=== PATIENT | female | born 1955 | race Caucasian/White ===

== ENCOUNTER → 2024-05-14 10:11 | Outpatient (REF) | payer MEDICARE, SELFPAY | LOC: WDC 10:11 | PROVIDERS: ATTENDING PHYSICIAN Obstetrics & Gynecology Gynecology; FAMILY PHYSICIAN Physician Assistant Medical | DX: N64.4 Mastodynia (principal) | CPT/HCPCS: 76642; 77061; 77065 ==

== ENCOUNTER → 2024-08-11 08:37 | Outpatient (REF) | payer MEDICARE, SELFPAY | LOC: WDC 08:37 | PROVIDERS: ATTENDING PHYSICIAN Obstetrics & Gynecology Gynecology; FAMILY PHYSICIAN Physician Assistant Medical | DX: R92.2 Inconclusive mammogram (principal); Z80.3 Family history of malignant neoplasm of breast | CPT/HCPCS: 76641 ==

== ENCOUNTER 2024-12-26 07:45 | Emergency (ER) | payer MEDICARE, SELFPAY ==
[2024-12-26 07:56] VITALS: BP 136/91
[2024-12-26 08:18] LABS: % Basophils 0.5 % (0-2); % Eosinophils 0.3 % (0-6); % Immature Granulocytes 0.3 % (0-0.5); % Monocytes 9.7 % (1.7-9.3); % Neutrophils 46.2 % (42.2-75.2); Absolute Lymphocytes 1.6 10^3/uL (1.2-3.4); Absolute Monocytes 0.4 10^3/uL (0.1-0.6); Absolute Neutrophils 1.8 10^3/uL (1.4-6.5); Hematocrit 41.8 % (37.0-47.0); Hemoglobin 13.7 g/dL (12.0-16.0); Mean Corp Hgb Conc. 32.8 g/dL (33.0-37.0); Mean Corpuscular Hgb 29.4 pg (27.0-31.0); Mean Corpuscular Volume 89.7 fL (81.0-99.0); Nucleated Red Blood Cells % 0 %; Platelet Count 217 10^3/uL (130-400); Red Blood Cell Count 4.66 10^6/uL (4.20-5.40); Red Cell Dist. Width 13.8 % (11.5-14.5); White Blood Cell Count 3.8 10^3/uL (4.8-10.8)
[2024-12-26 08:29] LABS: ALT (SGPT) 23 U/L (0-35); AST (SGOT) 26 U/L (14-36); Albumin 4.4 g/dl (3.5-5.0); Alkaline Phosphatase 88 U/L (38-126); Blood Urea Nitrogen 13 mg/dl (7-17); Calcium 9.6 mg/dl (8.4-10.2); Carbon Dioxide 27 mmol/L (22-30); Chloride 106 mmol/L (98-107); Glucose 116 mg/dl (70-99); Lipase 77 U/L (23-300); Potassium 4.5 mmol/L (3.5-5.1); Sodium 140 mmol/L (135-145); Total Bilirubin 0.5 mg/dl (0.2-1.3); Total Protein 7.4 g/dl (6.3-8.2); eGFR > 60.00
[2024-12-26 08:31] LABS: Urine Albumin Negative (Neg - Trace); Urine Bilirubin Negative (Negative); Urine Character Clear (Clear); Urine Color Yellow; Urine Glucose Negative (Negative); Urine Ketone Negative (Negative); Urine Leukocyte 1+ (Negative); Urine Nitrite Negative (Negative); Urine Occult Blood Negative (Negative); Urine Urobilinogen Negative (Neg - 1+)
--- NOTE | 2024-12-26 08:54 | ED.GENMED ---
History of Present Illness
General
Chief Complaint: Abdominal Symptoms
Source: patient
Exam Limitations: none
Time Seen by Provider: 12/26/24 08:53
Nursing documentation reviewed up to this point in time: agreed with
History of Present Illness
History of Present Illness:
Patient is a 69-year-old female who has had pain in the right rib area for about a month. She has been painting wol[place] of her house though denies injury. She thought this was possible muscular but then she started with nausea and has had diarrhea
twice this week which prompted her to come to the ER. She does have a history gallstones want to make sure this is not gallbladder disease. She denies any associated shortness of breath with this. She denies any rash, recent illness. Denies any
cough fever chills.
She does sometimes feel reflux in her chest.
Past History
Past History
ED Past Medical History: Hypercholesterolemia
ED Past Surgical History: Gynecological (Hysterectomy) and Other (Cataract removal)
Social History
Tobacco: Non-smoker
Alcohol: Occasional (Rare)
Personal:
Living: with family
Employment: Employed
Family History
Family History: CAD (Father); Negative Early CAD or Sudden
Review of Systems
Review of Systems
Allergies reviewed?: Yes
All Other Systems: ROS reviewed and negative except as documented in HPI and ROS
Constitutional: Reports no symptoms; Denies fever, fatigue or chills
EENT: Reports no symptoms
Respiratory: Reports other (right rib /chest discomfort ); Denies trouble breathing
Cardiac: Reports no symptoms
ABD/GI: Reports nausea and diarrhea
: Reports no symptoms
Musculoskeletal: Reports no symptoms
Neurological: Reports no symptoms
Psychiatric: Reports no symptoms
Phy Exam
General Physical Exam
General Presentation: no apparent distress
General age: appears stated age
General Skin: warm and dry
General Habitus: normal
General Mental: alert
Cardiovascular Exam
Cardiovascular Exam: regular rate/rhythm, no murmur and normal peripheral pulses
Pulmonary Exam
Pulmonary Exam: lungs clear and other (tender to palpation right rib region, no rash )
Neurological Exam
Neurological Exam: alert and oriented x3
Musculoskeletal Exam
Musculoskeletal Exam: full ROM
Skin Exam
Skin Exam: warm/dry
Psychiatric Exam
Psychiatric Exam: normal mood/affect
Course
Orders/Labs/Results
Orders:
Orders
12/26/24 08:05
Complete Blood Count/With Diff Urgent
Comprehensive Metabolic Panel Urgent
Lipase Urgent
Urinalysis Reflex To Culture Urgent
Date Specimen was Collected: 12/26/24
Time Specimen was Collected: 07:59
Urine Microscopic Reflex Cult Urgent
Urine Culture Urgent
EDWARD Source: U
Specimen Description:
Date Specimen was Collected: 12/26/24
Time Specimen was Collected: 07:59
12/26/24 09:05
Ribs, Right 3 View W/PA Chest [CR Ribs-right 3 Vw W/pa Chest*] Urgent
Comment:
Reason For Exam: pain
12/26/24 09:06
Electrocardiogram (*1) Stat
Reason for Study: Chest Pain
EKG- Treatment ONCE
12/26/24 09:07
US Abdomen Complete/Upper Urgent
Comment:
Reason For Exam: ruq pain
Abnormal Lab Results
12/26/24
08:05
WBC 3.8 L 10^3/uL
(4.8-10.8)
MCHC 32.8 L g/dL
(33.0-37.0)
Monocytes % 9.7 H %
(1.7-9.3)
Glucose 116 H mg/dl
(70-99)
Leukocyte Esterase Rfl 1+ A
(Negative)
12/26/24 08:05
12/26/24 08:05
Vital Signs
Initial and Last Documented VS:
Initial Vital Signs
Temp Pulse Resp BP Pulse Ox
98.2 F 72 16 136/91 98
12/26/24 07:56 12/26/24 07:56 12/26/24 07:56 12/26/24 07:56 12/26/24 07:56
Last Documented Vital Signs
Temp Pulse Resp BP Pulse Ox
98.2 F 61 18 132/81 98
12/26/24 07:56 12/26/24 10:33 12/26/24 10:33 12/26/24 10:33 12/26/24 10:33
MDM/Problems Addressed
Differential Diagnosis Includes:
not limited to: Muscular pain less likely gallbladder issues
MDM/Problems Addressed:
Patient has been doing a lot of housework and painting recently just got done painting wolfe in her house and now is planning on stripping wallpaper. She has had pain in the right rib area. This is very tender to palpation and presents muscular.
She has no associated shortness of breath or rash no upper abdominal tenderness. She presented because she had little nausea and diarrhea wanted to make sure that it was not her gallbladder issue. This is likely a viral syndrome incidentally with
muscular pain. She is in no acute distress nonhypoxic abdomen soft nontender she is tender over the rib area only. She is nonhypoxic nontachycardic afebrile no acute distress stable for discharge home. Discussed with patient to rest alternate
Tylenol Motrin follow
*Radiology
Radiology exam reviewed: radiology read reviewed
*Pulse Oximetry
Patient hypoxic: no
*EKG
Interpreted by ED Provider?: Yes
Interpretation: normal
Heart Rate: 65
Rate: normal
Rhythm: sinus
*Critical Care Note
Total Time (30-74mins, 75-104mins- exclusive of procedures): Not Applicable
ED Attending Note
-
Portions of this chart may have been created with voice recognition software.� Occasional wrong word or��sound alike� substitutions may have occurred due to the inherent limitations of voice recognition software.
Discharge Plan
Departure
Patient Disposition: Home (Routine Discharge)
Date of Disposition: 12/26/24
Time of Disposition: 11:16
Patient with high blood pressure during this ER visit?: Yes
Condition: Fair
Covid-19: Not Applicable
Discharge Problem:
muscle and bone pain
Instructions: Muscle, joint, and bone pain - Discharge instructions, BLOOD PRESSURE
Prescriptions:
No Action
ascorbic acid (vitamin C) [Vitamin C] 1,000 MG tablet
1,000 mg PO DAILY
rebekah Delgado B.animalis 1 EACH capsule
1 ea PO BID
Patient Comments:
unsure of units
Vitamin B-12
1 tab PO DAILY
Patient Comments:
unsure of mg
Vitamin D3
1 tab PO DAILY
Patient Comments:
unsure of mg
calcium carbonate 600 MG tablet
600 mg PO DAILY
magnesium 250 MG tablet
250 mg PO DAILY
lysine HCl 500 MG tablet
500 mg PO DAILY
omeprazole 20 MG capsule,delayed release(DR/EC)
20 mg PO DAILY Qty: 20 0RF
Referrals:
UNKNOWN - PT NOT,INTERVIEWE [Family Provider] -
Activity Restrictions/Additional Instructions:
As discussed this is likely muscular pain. Please rest over the next several days!!
you may continue to alternate between ibuprofen and Tylenol. You may alternate between ice and heat. Follow-up closely with your family doctor the next of days return if any worsening of symptoms
Interventions
Interventions:
*Risk Screen - Suicide Last Done: 12/26/24 07:56
*General Assessment Last Done: 12/26/24 10:32
*Neglect/Abuse Screening Last Done: 12/26/24 07:56
*Nursing Disposition Last Done: 12/26/24 11:44
RJ-Mouzct-Gaasbjtqbn Assessment Last Done: 12/26/24 10:35
Discharge Date and Time
Discharge Date/Time: 12/26/24 11:45
Print Language: UPPER SORBIAN
[2024-12-26 10:11] LABS: Urine Mucus Few
[2024-12-26 10:13] LABS: Urine Amorphous Seen; Urine Hyaline Cast 0-2 /LPF (0-2)
[2024-12-26 10:14] LABS: Urine Red Blood Cell 0-2 /HPF (0-2)
[2024-12-26 10:32] VITALS: BMI 30.8
[2024-12-26 10:33] VITALS: BP 132/81
== END 2024-12-26 11:45 | disposition home or self-care (01) ==
LOC: EMR 07:45
PROVIDERS: EMERGENCY PHYSICIAN Student in an Organized Health Care Education/Training Program
DX: M89.8X9 Other specified disorders of bone, unspecified site (principal); R07.81 Pleurodynia; K21.9 Gastro-esophageal reflux disease without esophagitis; E78.00 Pure hypercholesterolemia, unspecified; Z82.49 Family history of ischemic heart disease and other diseases of the circulatory system; Z90.710 Acquired absence of both cervix and uterus
CPT/HCPCS: 99284; 71101; 76700; 80053; 81003; 81015; 83690; 85025; 87086; 93005

== ENCOUNTER 2025-06-15 09:00 | Emergency (ER) | payer MEDICARE, SELFPAY ==
[2025-06-15 09:02] VITALS: BP 149/93
--- NOTE | 2025-06-15 09:37 | ED.GENMED ---
History of Present Illness
General
Chief Complaint: Abdominal Pain
Time Seen by Provider: 06/15/25 09:24
Nursing documentation reviewed up to this point in time: agreed with
History of Present Illness
History of Present Illness:
70-year-old female presents to the ER for evaluation of mid back pain which started last night and prevented her from getting a good night sleep. Patient reports that she has been having ongoing issues with right sided chest pain intermittently
over the last several months. 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 Patient has reported worsening dyspepsia and was belching frequently throughout the night. Her
appointment was scheduled for August. She was able to follow-up with her family physician and was given a prescription for CAT scan to be performed this . Given progression of symptoms and worsening pain she comes to the ER today for
evaluation. She denies any shortness of breath, cough or cold symptoms. She denies any nausea vomiting or change in bowel habits. She denies any blood in her stool or change in caliber of her stool. She cannot correlate this discomfort with any
change in diet or particular foods. She states that she had a tomato sandwich for dinner last night. She did not try any ymbz-pon-tmtvgxx remedies for her symptoms. She states that the pain is a 4 out of 10 at current. She denies any recent
injury or trauma. She was seen in the emergency department in December for evaluation of her right sided chest pain given her history of gallstones. She had an ultrasound performed at that time which I was able to review in the electronic medical
record showing multiple gallstones, no Luz Elena cystitis. Patient has prior surgical history of hysterectomy/BTL only. No fevers or chills.
Past History
Past History
ED Past Medical History: Hypercholesterolemia
ED Past Surgical History: Gynecological (Hysterectomy) and Other (Cataract removal)
Social History
Tobacco: Non-smoker
Alcohol: Occasional (Rare)
Personal:
Living: with family
Employment: Employed
Family History
Family History: CAD (Father); Negative Early CAD or Sudden
Review of Systems
Review of Systems
Allergies reviewed?: Yes
Phy Exam
Physical Exam
Physical Exam:
Patient is awake, alert, appears in no acute distress, wearing glasses, head is normocephalic atraumatic, sclera anicteric, conjunctiva pink, mucous membranes moist, heart regular rate and rhythm without murmurs or ectopy, lungs are clear to
auscultation, patient gestures to mid thoracic spine as area of discomfort, pain is not reproducible on palpation, no overlying skin change, no step-offs on palpation of thoracic or lumbar spine, abdomen is soft with moderate pain on palpation
epigastrium and right upper quadrant only, extremities without edema, GCS is 15
Course
Orders/Labs/Results
Orders:
Orders
06/15/25 09:06
ECG [Electrocardiogram (*1)] Urgent
Reason for Study: Abdominal Pain
EKG- Treatment ONCE
06/15/25 09:38
CT Chest/abd/pelvis Angio W/wo Urgent
Comment:
Reason For Exam: abdominal pain rad to mid back
06/15/25 09:51
Complete Blood Count/With Diff Urgent
Comprehensive Metabolic Panel Urgent
Lipase Urgent
Prothrombin Time Urgent
Troponin I Urgent
06/15/25 12:04
Urinalysis Reflex To Culture Urgent
Date Specimen was Collected: 06/15/25
Time Specimen was Collected: 12:01
Urine Microscopic Reflex Cult Urgent
Abnormal Lab Results
06/15/25 06/15/25
09:51 12:04
MCHC 32.3 L g/dL
(33.0-37.0)
MPV 10.6 H fL
(7.4-10.4)
Glucose 105 H mg/dl
(70-99)
Urine Albumin (Reflex) 1+ A
(Neg - Trace)
06/15/25 09:51
06/15/25 09:51
Vital Signs
Initial and Last Documented VS:
Initial Vital Signs
Temp Pulse Resp BP Pulse Ox
97 F 82 16 149/93 99
06/15/25 09:02 06/15/25 09:02 06/15/25 09:02 06/15/25 09:02 06/15/25 09:02
Last Documented Vital Signs
Temp Pulse Resp BP Pulse Ox
97.7 F 60 16 121/75 99
06/15/25 12:00 06/15/25 12:00 06/15/25 12:00 06/15/25 12:00 06/15/25 12:00
MDM/Problems Addressed
Differential Diagnosis Includes:
Differential diagnosis to consider but not limited to choledocholithiasis, acute cholecystitis, aortic dissection, GERD, peptic ulcer disease, pancreatitis along with other etiologies
Chronic conditions affecting care:
GERD, gallstones, irritable bowel syndrome along with other etiologies considered
*Radiology
Radiology exam reviewed: radiology read reviewed
*Pulse Oximetry
SaO2: 99
Oxygen Mode of Delivery: Room air
Patient hypoxic: no
*EKG
Interpreted by ED Provider?: Yes (I independently viewed and interpreted twelve-lead EKG showing normal sinus rhythm, rate 71, normal axis, normal intervals, this is a normal tracing, similar to prior from 12/26/2024)
*Nitrogen Operator Interpretation
Rate: normal (I independently viewed and interpreted rhythm strip showing normal sinus rhythm, no ectopy)
*Critical Care Note
Total Time (30-74mins, 75-104mins- exclusive of procedures): Not Applicable
Update Note
Update Note:
Patient is declining any medications for treatment of symptoms at the current time, preferring to await CT scan for further evaluation. CT angio ordered to rule out vascular injury in addition to possible biliary/GI etiology. Patient and
present bedside agree with plan at current
1135: I reviewed with patient and present at bedside very reassuring workup so far. CT scan results including presence of cholelithiasis and possible bladder wall asymmetry. Patient will provide urine sample to rule out cystitis although
this does not correlate with the symptoms she is describing of upper back discomfort. I discussed with her possible biliary dyskinesia as etiology of pain. We also discussed possible reflux-she is no longer on Prilosec. I discussed with her use
of trial of Prilosec to see if this would help alleviate her symptoms. I discussed with her benefit of follow-up with surgery for further evaluation of her gallbladder. Patient and present bedside feel comfortable with plan at current.
Urinalysis is not consistent with infection. Patient is provided with urology follow-up information for outpatient follow-up. She expressed understanding of discharge plan and strict return precautions. Both she and her felt comfortable
and had no questions prior to leaving the department in good condition.
ED Attending Note
-
Portions of this chart may have been created with voice recognition software.� Occasional wrong word or��sound alike� substitutions may have occurred due to the inherent limitations of voice recognition software.
Discharge Plan
Departure
Patient Disposition: Home (Routine Discharge)
Date of Disposition: 06/15/25
Time of Disposition: 12:44
Patient with high blood pressure during this ER visit?: Yes
Discharge Problem:
Back pain, Chronic gastroesophageal reflux disease, Cholelithiasis, Bladder wall thickening
Instructions: Acid Reflux and GERD in Adults (DC), Gallstones - ED (DC)
Prescriptions:
No Action
ascorbic acid (vitamin C) [Vitamin C] 1,000 MG tablet
1,000 mg PO DAILY
L.acidoph,paracasei,B.animalis 1 EACH capsule
1 ea PO BID
Patient Comments:
unsure of units
Vitamin B-12
1 tab PO DAILY
Patient Comments:
unsure of mg
Vitamin D3
1 tab PO DAILY
Patient Comments:
unsure of mg
calcium carbonate 600 MG tablet
600 mg PO DAILY
magnesium 250 MG tablet
250 mg PO DAILY
lysine HCl 500 MG tablet
500 mg PO DAILY
omeprazole 20 MG capsule,delayed release(DR/EC)
20 mg PO DAILY Qty: 20 0RF
Referrals:
Malka Matthew PA-C [Family Provider, Family Practice]
Chiki Vargas MD [Active, Urology] - Next open appointment
Discharge Problem: Bladder wall thickening
Jarrell Mcnally MD [Active, Surgical] - Next open appointment
Discharge Problem: Cholelithiasis
Activity Restrictions/Additional Instructions:
Please take antacid medication as previously prescribed by your primary care physician. Please follow a low acid/low-fat diet until you are seen in follow-up. Follow-up with your return to vendor as scheduled. You will not need to have
additional CAT scan performed this week given studies performed in the emergency department. Return to the ER for any concerns
Interventions
Interventions:
*Risk Screen - Suicide Last Done: 06/15/25 09:02
*General Assessment Last Done: 06/15/25 09:02
*Neglect/Abuse Screening Last Done: 06/15/25 09:40
*ED- Fall Risk Assessment Last Done: 06/15/25 09:40
*ED COVID-19 Vaccine History Last Done: 06/15/25 09:40
*Nursing Disposition Last Done: 06/15/25 13:06
BG-Poncyk-Lyleumazdr Assessment Last Done: 06/15/25 09:56
Discharge Date and Time
Discharge Date/Time: 06/15/25 13:06
Print Language: MOHAWK
[2025-06-15 09:52] VITALS: BMI 27.9
[2025-06-15 09:53] VITALS: BP 128/80
[2025-06-15 10:15] LABS: INR 1.02; PT 13.7 Sec (11.4-14.6)
[2025-06-15 10:25] LABS: ALT (SGPT) 20 U/L (0-35); AST (SGOT) 25 U/L (14-36); Albumin 4.6 g/dl (3.5-5.0); Alkaline Phosphatase 94 U/L (38-126); Blood Urea Nitrogen 15 mg/dl (7-17); Calcium 9.9 mg/dl (8.4-10.2); Carbon Dioxide 28 mmol/L (22-30); Chloride 104 mmol/L (98-107); Estimated Creatinine Clearance 66 ml/min; Glucose 105 mg/dl (70-99); Lipase 58 U/L (23-300); Potassium 4.6 mmol/L (3.5-5.1); Sodium 138 mmol/L (135-145); Total Protein 7.8 g/dl (6.3-8.2); eGFR > 60.00
[2025-06-15 10:37] LABS: Troponin I < 0.012 ng/ml
[2025-06-15 11:13] LABS: Hematocrit 43.6 % (37.0-47.0); Hemoglobin 14.1 g/dL (12.0-16.0); Mean Corp Hgb Conc. 32.3 g/dL (33.0-37.0); Mean Corpuscular Volume 90.1 fL (81.0-99.0); Nucleated Red Blood Cells % 0 %; Platelet Count 225 10^3/uL (130-400); Red Cell Dist. Width 13.6 % (11.5-14.5)
[2025-06-15 12:00] VITALS: BP 121/75
[2025-06-15 12:37] LABS: Urine Character Clear (Clear)
[2025-06-15 13:14] LABS: Urine Red Blood Cell 0-2 /HPF (0-2); Urine Squamous Cell 16-20 /LPF (Few); Urine White Cell 0-2 /HPF (0-5)
== END 2025-06-15 13:06 | disposition home or self-care (01) ==
LOC: EMR 09:00
PROVIDERS: EMERGENCY PHYSICIAN Emergency Medicine; FAMILY PHYSICIAN Physician Assistant Medical
DX: M54.6 Pain in thoracic spine (principal); K21.9 Gastro-esophageal reflux disease without esophagitis; K80.20 Calculus of gallbladder without cholecystitis without obstruction; N32.89 Other specified disorders of bladder; E78.00 Pure hypercholesterolemia, unspecified
CPT/HCPCS: 99284; 71275; 74174; 80053; 81003; 81015; 83690; 84484; 85025; 85610; 93005; Q9967

== ENCOUNTER 2025-07-27 16:09 | Emergency (ER) | payer MEDICARE, SELFPAY ==
[2025-07-27 16:14] VITALS: BP 123/81
[2025-07-27 16:39] LABS: Hematocrit 44.0 % (37.0-47.0); Hemoglobin 14.0 g/dL (12.0-16.0); Mean Corp Hgb Conc. 31.8 g/dL (33.0-37.0); Mean Corpuscular Volume 93.8 fL (81.0-99.0); Nucleated Red Blood Cells % 0 %; Platelet Count 247 10^3/uL (130-400); Red Cell Dist. Width 13.9 % (11.5-14.5)
[2025-07-27 17:00] LABS: ALT (SGPT) 21 U/L (0-35); AST (SGOT) 24 U/L (14-36); Albumin 4.6 g/dl (3.5-5.0); Alkaline Phosphatase 85 U/L (38-126); Blood Urea Nitrogen 16 mg/dl (7-17); Calcium 9.7 mg/dl (8.4-10.2); Chloride 102 mmol/L (98-107); Glucose 133 mg/dl (70-99); Potassium 4.5 mmol/L (3.5-5.1); Sodium 137 mmol/L (135-145); Total Protein 7.8 g/dl (6.3-8.2); eGFR > 60.00
[2025-07-27 17:09] LABS: Carbon Dioxide 26 mmol/L (22-30)
[2025-07-27 17:13] VITALS: BP 140/74
[2025-07-27 17:50] VITALS: BMI 26.3
[2025-07-27] MEDS: TORADOL 15 MG IV (17:54)
--- NOTE | 2025-07-27 18:59 | ED.GENMED ---
History of Present Illness
General
Chief Complaint: Headache
Source: patient
Exam Limitations: none
Time Seen by Provider: 07/27/25 17:01
Nursing documentation reviewed up to this point in time: agreed with
History of Present Illness
History of Present Illness:
Patient to ED with complaint of headache. Headache started on Sunday. Denies any fever chills recent illness. She was evaluated by her primary care provider and sent to the emergency dept for further evaluation. Patient states that her provider
felt that her left side was weaker than her right side. Patient denies any difficulty with ambulation. She denies feeling weaker on the left versus the right. She denies any changes in her vision. She states she has a history of migraine
headaches but typically has an aura before her migraines start. There was no aura associated with this headache. This headache is located posteriorly where she reports pain from migraine headaches are typically frontal for her. She reports taking
Tylenol without any improvement. Spouse is bedside. He denies noticing any changes in her neurological status.
Past History
Past History
ED Past Medical History: Hypercholesterolemia
ED Past Surgical History: Gynecological (Hysterectomy) and Other (Cataract removal)
Social History
Tobacco: Non-smoker
Alcohol: Occasional (Rare)
Personal:
Living: with family
Employment: Employed
Family History
Family History: CAD (Father); Negative Early CAD or Sudden
Review of Systems
Review of Systems
Allergies reviewed?: Yes
All Other Systems: ROS reviewed and negative except as documented in HPI and ROS
Constitutional: Reports no symptoms
EENT: Reports no symptoms
Respiratory: Reports no symptoms
Cardiac: Reports no symptoms
ABD/GI: Reports no symptoms
: Reports no symptoms
Musculoskeletal: Reports no symptoms
Skin: Reports no symptoms
Neurological: Reports headache
Psychiatric: Reports no symptoms
Phy Exam
General Physical Exam
General Presentation: mild distress
General age: appears stated age
General Skin: warm and dry
General Habitus: normal
General Mental: alert
General Hydration: appears well hydrated
ENT Exam
ENT Exam: EOMI, TM's normal, neck supple and normocephalic
Eye Exam
Eye Exam: PERRL, EOMI, conjunctiva normal and globe normal
Cardiovascular Exam
Cardiovascular Exam: regular rate/rhythm and no edema
Pulmonary Exam
Pulmonary Exam: lungs clear and no respiratory distress
Neurological Exam
Neurological Exam: alert, oriented x3, CN II-XII intact, no motor deficits, no sensory deficits and speech normal
[place] Coma Scale
Eye Opening: Spontaneous
Verbal Response: Oriented
Motor Response: Obeys Commands
GCS Total Score: 15
Mental
Mental Status: oriented to person, oriented to place, oriented to time and usual mental status
Cranial
Cranial Nerves: normal
EOM (CN3/4/6): intact
Motor
Seizure Activity: none
Other Movement Disorders: none
Right upper extremity: 4
Right lower extremity: 4
Left upper extremity: 4
Left lower extremity: 4
Bilateral upper extremities: 4
Bilateral lower extremities: 4
Sensory
Sensory Exam: intact
Cerebellar
Cerebellar Function: normal finger to nose and normal Romberg test
Musculoskeletal Exam
Musculoskeletal Exam: full ROM and neuro vasc intact
Skin Exam
Skin Exam: normal color, warm/dry and no rash
Psychiatric Exam
Psychiatric Exam: normal mood/affect
Course
Orders/Labs/Results
Orders:
Orders
07/27/25
Electrocardiogram (*1) Stat
Comment: DONE
07/27/25 16:[address] [CT Head W/o Iv Contrast] Urgent
Comment:
Reason For Exam: headache
07/27/25 16:30
CMP [Comprehensive Metabolic Panel] Urgent
Complete Blood Count/With Diff Urgent
Lyme Progressive Urgent
Comment: ADD ON
07/27/25 17:26
Ketorolac [Toradol] 15 mg IV NOW STA
07/27/25 17:41
Add On- LAB Urgent
Comments:: lyme progressive
Tests Added?: lyme progressive
Abnormal Lab Results
07/27/25
16:30
MCHC 31.8 L g/dL
(33.0-37.0)
MPV 10.5 H fL
(7.4-10.4)
Glucose 133 H mg/dl
(70-99)
07/27/25 16:30
07/27/25 16:30
Vital Signs
Initial and Last Documented VS:
Initial Vital Signs
Temp Pulse Resp BP Pulse Ox
97.8 F 81 18 123/81 97
07/27/25 16:14 07/27/25 16:14 07/27/25 16:14 07/27/25 16:14 07/27/25 16:14
Last Documented Vital Signs
Temp Pulse Resp BP Pulse Ox
97.8 F 73 15 140/74 98
07/27/25 16:14 07/27/25 17:45 07/27/25 17:45 07/27/25 17:13 07/27/25 17:51
*Radiology
Radiology exam reviewed: radiology read reviewed
*Pulse Oximetry
SaO2: 98
Oxygen Mode of Delivery: Room air
Patient hypoxic: no
*Critical Care Note
Total Time (30-74mins, 75-104mins- exclusive of procedures): Not Applicable
Update Note
Update Note:
Patient to the emergency department with report of posterior headache for the past 3 days. Pain has not been responding to Tylenol. She denies fever or chills. Denies any vision changes. Labs reviewed, no concerning findings. CT of head
completed. No acute findings. Her neuroexam was unremarkable. No weakness noted. No facial droop. She is concerned for Lyme disease. She states now that she has had Lyme disease in the past and is concerned that the headache may be due to
reinfection. She does report removing a deer tick from her body this summer. Lyme progressive has been ordered. Results are pending. Discussed with her that the results will not be available tonight. She will be notified by the hospital for any
positive results. She was given a dose of Toradol while in the emergency department and pain has resolved. She will be discharged home with her and will follow-up with her family doctor in 1 to 2 days. She was given instructions on signs
and symptoms to return to the emergency department and she is agreeable to plan.
ED Attending Note
-
Portions of this chart may have been created with voice recognition software.� Occasional wrong word or��sound alike� substitutions may have occurred due to the inherent limitations of voice recognition software.
Discharge Plan
Departure
Patient Disposition: Home (Routine Discharge)
Date of Disposition: 07/27/25
Time of Disposition: 18:57
Patient with high blood pressure during this ER visit?: No
Condition: Good
Covid-19: Not Applicable
Discharge Problem:
Headache
Instructions: Headache, Adult (DC)
Prescriptions:
No Action
ascorbic acid (vitamin C) [Vitamin C] 1,000 MG tablet
1,000 mg PO DAILY
L.acidoph,paracasei,B.animalis 1 EACH capsule
1 ea PO BID
Patient Comments:
unsure of units
Vitamin B-12
1 tab PO DAILY
Patient Comments:
unsure of mg
Vitamin D3
1 tab PO DAILY
Patient Comments:
unsure of mg
calcium carbonate 600 MG tablet
600 mg PO DAILY
magnesium 250 MG tablet
250 mg PO DAILY
lysine HCl 500 MG tablet
500 mg PO DAILY
omeprazole 20 MG capsule,delayed release(DR/EC)
20 mg PO DAILY Qty: 20 0RF
Referrals:
Courtney Reyna DO [Family Provider, Family Practice]
Referral Note: Follow up in 1-2 days
Activity Restrictions/Additional Instructions:
Return to the emergency department immediately for any changes in/worsening of your symptoms.
Interventions
Interventions:
*Risk Screen - Suicide Last Done: 07/27/25 17:51
*General Assessment Last Done: 07/27/25 17:51
*Neglect/Abuse Screening Last Done: 07/27/25 17:51
*ED- Fall Risk Assessment Last Done: 07/27/25 17:51
*ED COVID-19 Vaccine History Last Done: 07/27/25 17:51
*ED Influenza Vaccine History Last Done: 07/27/25 17:51
ED- Neurological Assessment Last Done: 07/27/25 17:51
Discharge Date and Time
Print Language: GREEK
[2025-07-27 19:13] VITALS: BP 123/73
== END 2025-07-27 19:25 | disposition home or self-care (01) ==
LOC: EMR 16:09
PROVIDERS: Emergency Medicine; EMERGENCY PHYSICIAN Emergency Medicine; FAMILY PHYSICIAN Family Medicine
DX: R51.9 Headache, unspecified (principal); E78.00 Pure hypercholesterolemia, unspecified
CPT/HCPCS: 99284; 96374; 70450; 80053; 85025; 86618; 93005

== ENCOUNTER 2025-08-14 06:14 | Day surgery (SDC) | payer MEDICARE, SELFPAY ==
[2025-08-14] VITALS (7 sets, daily range): BP systolic 109–131; BP diastolic 66–76; BMI 25.5
[2025-08-14] MEDS: TYLENOL 1000 MG PO (08:51)
[2025-08-14] MEDS: NORMOSOL-R/PLASMALYTE-A 1000 IV (08:58)
== END 2025-08-14 12:55 | disposition home or self-care (01) ==
LOC: SDS 06:14
PROVIDERS: ATTENDING PHYSICIAN Surgery
DX: K80.10 Calculus of gallbladder with chronic cholecystitis without obstruction (principal); K66.0 Peritoneal adhesions (postprocedural) (postinfection)
CPT/HCPCS: 47563; 74300; 76000; 88304; A4300

== ENCOUNTER → 2025-10-13 09:47 | Outpatient (REF) | payer MEDICARE, SELFPAY | LOC: RAD 09:47 | PROVIDERS: ATTENDING PHYSICIAN Nurse Practitioner; FAMILY PHYSICIAN Physician Assistant Medical | DX: R10.21 Pelvic and perineal pain right side (principal) | CPT/HCPCS: 76856 ==